=== PATIENT | female | born 1965 | race African-American/Black ===

== ENCOUNTER 2023-11-30 12:58 | Emergency (ER) | payer MEDICAID, OTHER ==
[~2023-11-30] VITALS: Ht 165.1 cm; Wt 90.0 kg
[2023-11-30] MEDS: AMOXICILLIN/CLAVUL 875 MG TAB PO ONE (13:51)
[2023-11-30] MEDS: ACETAMINOPHEN 500 MG TAB PO ONE (13:51)
[2023-11-30] MEDS: PSEUDOEPHEDRINE HCL 30 MG TAB PO ONE (13:57)
[2023-11-30] MEDS ORDERED: AUG875T PO (14:05)
[2023-11-30 14:31] VITALS: BP 140/81; PULSE 65; RESP 18; TEMP 97.7; O2SAT 97
== END 2023-11-30 14:34 | disposition home or self-care (01) ==
LOC: ER 12:58
DX: K04.7 Periapical abscess without sinus (principal); R22.0 Localized swelling, mass and lump, head; I25.2 Old myocardial infarction; Z86.73 Personal history of transient ischemic attack (TIA), and cerebral infarction without residual deficits